=== PATIENT | female | born 1985 | race Caucasian/White ===

== ENCOUNTER → 2018-07-12 | Emergency (ER) | payer BC ==
[2018-07-12 03:32] LABS: ADD MAN DIFF? NO
[2018-07-12 03:37] LABS: ADD UMIC NO; UR ASCORBIC ACID 20 mg/dL (NEGATIVE); UR BILIRUBIN (Dip) NEGATIVE (NEGATIVE); UR BLOOD (Dip) NEGATIVE (NEGATIVE); UR CLARITY CLEAR (CLEAR); UR COLOR YELLOW (YELLOW); UR GLUCOSE (Dip) NEGATIVE (NEGATIVE); UR KETONES (Dip) NEGATIVE (NEGATIVE); UR LEUKOCYTE ESTERASE (Dip) NEGATIVE Leu/ul (NEGATIVE); UR NITRITE (Dip) NEGATIVE (NEGATIVE); UR TOTAL PROTEIN (Dip) NEGATIVE (NEGATIVE); UR UROBILINOGEN (Dip) NEGATIVE (NEGATIVE)
[2018-07-12] MEDS: SOD CHLORIDE 0.9% 500 ML IV (03:40)
[2018-07-12] MEDS: KETOROLAC 15 MG INJ IV (03:40)
[2018-07-12] MEDS: ALBUTEROL 0.083% (NEB) 2.5 MG/3 ML AMP HHN (03:43)
[2018-07-12] MEDS: IPRATROPIUM (NEB) 0.5 MG/2.5 ML AMP INH (03:43)
[2018-07-12 03:52] LABS: ANION GAP 9 (5-13); BLOOD UREA NITROGEN 15 mg/dl (7-20); CALCIUM 8.9 mg/dl (8.4-10.2); CARBON DIOXIDE 27 mmol/L (21-31); CHLORIDE 107 mmol/L (97-110); CREATININE 0.59 mg/dl (0.44-1.00); Estimated GFR > 60 mL/min (>60); GLUCOSE 94 mg/dl (70-220); POTASSIUM 4.1 mmol/L (3.5-5.1); SODIUM 143 mmol/L (135-144)
[2018-07-12 04:04] LABS: TROPONIN-I < 0.012 ng/ml (0.000-0.120)
[2018-07-12 04:10] LABS: WHITE BLOOD COUNT 6.6 10^3/ul (4.8-10.8)
[2018-07-12 04:10] LABS: BASOPHILS % 0.3 % (0.0-2.0); EOSINOPHILS # 0.1 10^3/ul (0.0-0.5); EOSINOPHILS % 1.5 % (0.0-7.0); HEMATOCRIT 38.2 % (37.0-47.0); HEMOGLOBIN 12.4 g/dl (12.0-16.0); LYMPHOCYTES % 30.4 % (15.0-51.0); MEAN CORPUSCULAR HEMOGLOBIN 29.4 pg (29.0-33.0); MEAN CORPUSCULAR HGB CONC 32.5 g/dl (32.0-37.0); MEAN CORPUSCULAR VOLUME 90.5 fl (82.0-101.0); MEAN PLATELET VOLUME 11.2 fl (7.4-10.4); MONOCYTE # 0.9 10^3/ul (0.3-0.9); MONOCYTES % 13.3 % (0.0-11.0); NEUTROPHIL # 3.6 10^3/ul (1.6-7.5); NEUTROPHILS % 54.2 % (39.0-77.0); PLATELET COUNT 207 10^3/UL (140-415); RED BLOOD COUNT 4.22 10^6/ul (4.20-5.40); RED CELL DISTRIBUTION WIDTH 11.9 % (11.5-14.5)
[2018-07-12 04:11] LABS: D-DIMER 317.63 ng/ml (<460)
== END | disposition home or self-care (01) ==
LOC: FTE 02:43
DX: R07.89 Other chest pain (principal); R05 Cough
CPT/HCPCS: 71045; 80048; 81003; 81025; 84484; 85025; 85378; 93005; 94664; 96374; 99285-25